=== PATIENT | female | born 1965 | race Caucasian/White ===

== ENCOUNTER → 2020-12-09 16:25 | Outpatient (BNVA) | payer OTHER, SELFPAY | PROVIDERS: Family Provider Family Medicine; PCP Family Medicine; Visit Provider Internal Medicine | DX: Z01.812 Encounter for preprocedural laboratory examination (principal); R13.10 Dysphagia, unspecified | CPT/HCPCS: 87635 ==

== ENCOUNTER 2020-12-13 08:29 | Day surgery (SDC) | payer OTHER, SELFPAY ==
[2020-12-11 13:24] VITALS: BMI 23.5
--- NOTE | 2020-12-13 08:40 | ANES.PREANE2 ---
Pre-Anesthetic Assessment Pre-Anesthetic Assessment: Height/Weight: Height 1.7 m Weight 68.039 kg Preop Diagnosis: dysphagia Proposed Procedure: Operation Date: 12/13/20 09:45 Proposed Procedures p EGD/colon 90265 G0121 R13.10(Not Applicable) - Markos Kraus MD s Colonoscopy(Not Applicable) - Markos Kraus MD Familial anesthetic complications: none Was Beta Burton taken within 24 hours: N/A Was Clonidine taken within 24 hours: N/A Last intake: > 8 hrs Social: Social History: No alcohol and No tobacco Exam: Pre-Anes Outpt Exam: alert, oriented x 3, clear to auscultation bilaterally and regular rate & rhythm Airway: Cervical ROM: WNL MP: 1 Dentition: Full CV/HEM: CV/HEM: Arrythmia (flecainide for rapid heart rate) Comments: leaky valve - she has no symptoms from this, last evaluated 6 months ago, no plans for any intervention at this time. GI: GI: GERD Anesthetic Plan: ASA status: 2 Risk of > 500 ml blood loss (7ml/kg in children): No PFSH Anesthesia PFSH: Medical History (Updated 12/03/20 @ 14:48 by Markos Kraus MD) Dysphagia Family History (Updated 12/03/20 @ 14:22 by SHANON Burroughs) Mother Cancer Other Hypertension Social History (Updated 12/03/20 @ 14:22 by SHANON Burroughs) Smoking and tobacco status: never smoked service: No History of recent travel: No Data Anesthesia Cardiac Studies: No Data to Display
[2020-12-13 08:58] VITALS: BP 148/79; PULSE 81; RESP 16; TEMP 36.9; O2SAT 98
--- NOTE | 2020-12-13 09:02 | P.HP_ITS ---
Same Day Surgery H&P Indication for Procedure/HPI DATE OF PROCEDURE: December 13, 2020 CHIEF COMPLAINT/INDICATIONFOR SURGICAL PROCEDURE: Screening, dysphagia PREOP DIAGNOSIS: dysphagia PLANNED PROCEDRUE: Operation Date: 12/13/20 09:45 Proposed Procedures p EGD/colon 61379 G0121 R13.10(Not Applicable) - Markos Kraus MD s Colonoscopy(Not Applicable) - Markos Kraus MD Medications/Allergies* Home Medications Medication Instructions Recorded Confirmed Type flecainide 100 mg tablet 50 mg PO Q12H 10/08/20 12/11/20 History pantoprazole 40 mg tablet,delayed 40 mg PO DAILY 10/08/20 12/11/20 History release norethindrone-e.estradiol-iron 1 tab PO DAILY 12/11/20 12/11/20 History [Microgestin FE 05/29 ()] Allergies/Adverse Reactions Allergy/AdvReac Type Severity Reaction Status Date / Time No Known Allergies Allergy Verified 12/11/20 13:27 Pertinent History/Comorbid Conditions* Medical History (Updated 12/03/20 @ 14:48 by Markos Kraus MD) Dysphagia Family History (Updated 12/03/20 @ 14:22 by SHANON Burroughs) Cancer Mother Hypertension Social History Smoking and tobacco status: never smoked service: No History of recent travel: No Pertinent Exam Findings alert, oriented x 3, clear to auscultation bilaterally, regular rate & rhythm, operative site marked and procedure specific exam findings Recommendations Surgery/Procedure today Coding Level of Care Code Acute 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
[2020-12-13] MEDS: sodium chloride 0.9% 1,000 ML 30 ML IV (09:17)
[2020-12-13 09:34] LABS: OR HCG Qualitative Urine Negative (Negative)
[2020-12-13 09:45] VITALS: BP 109/70; PULSE 72; RESP 18; TEMP 36.1; O2SAT 99
[2020-12-13 10:00] VITALS: BP 140/78; PULSE 70; RESP 16; O2SAT 99
--- NOTE | 2020-12-13 14:52 | ANE.PACU2 ---
Inpatient post-anesthesia follow up: Airway intact: Yes Vital signs: Temperature 97 F Pulse Rate 70 Respiratory Rate 16 Blood Pressure 140/78 Pulse Oximetry 99 Oxygen Delivery Me thod Room Air Oxygen Flow Rate Fraction of Inspir ed Oxygen Hydration adequate: Yes Nausea and vomiting: No Pain level: 1 Mental status: Baseline
== END 2020-12-13 10:30 | disposition home or self-care (01) ==
PROVIDERS: Anesthesiology; PCP Family Medicine; Visit Provider Internal Medicine
PROC: 0DJ08ZZ Inspection of Upper Intestinal Tract, Via Natural or Artificial Opening Endoscopic (ICD-10-PCS; CPT 43235; principal; 2020-12-13 09:45)
PROC: 0DJD8ZZ Inspection of Lower Intestinal Tract, Via Natural or Artificial Opening Endoscopic (ICD-10-PCS; CPT 45378; 2020-12-13 09:45)
DX: Z12.11 Encounter for screening for malignant neoplasm of colon (principal); R13.10 Dysphagia, unspecified; K44.9 Diaphragmatic hernia without obstruction or gangrene; K21.9 Gastro-esophageal reflux disease without esophagitis
CPT/HCPCS: 43235; 45378; 81025; 84703; J2704; J7030